=== PATIENT | female | born 1950 | race Caucasian/White ===

== ENCOUNTER 2021-03-02 14:38 | Outpatient (CLI) | payer MEDICARE, BC, SELFPAY | END 2021-03-02 14:39 | disposition home or self-care (01) | LOC: ANHAUDIO 14:40 | PROVIDERS: PCP Internal Medicine; Visit Provider Nurse Practitioner Family | DX: H90.3 Sensorineural hearing loss, bilateral (principal) | CPT/HCPCS: 92557; 92567 ==

== ENCOUNTER 2022-06-16 15:19 | Emergency (ER) | payer MEDICARE, BC, SELFPAY ==
[2022-06-16 15:46] VITALS: BP 143/83; PULSE 88; RESP 16; TEMP 36.1; O2SAT 99
--- NOTE | 2022-06-16 16:13 | ED.FEMALEGU ---
HPI - Female Genitourinary General Chief complaint: Urogenital-Female Stated complaint: uti Time Seen by Provider: 06/16/22 16:14 Source: patient, RN notes reviewed and old records reviewed Mode of arrival: ambulatory Limitations: no limitations History of Present Illness HPI Narrative: 71-year-old female presents to the [facility] with complaints of bloody urination since 11/16 this morning. Currently undergoing breast cancer treatment. Patient reports last she was seen and at [facility] and had fluids offer her lungs. Currently denies any chest pain. Patient states she is having some abdominal cramping, states she took a laxative just prior to arrival because of constipation Reports frequency, hematuria and urgency with urination since 629 Related Data Home Medications Medication Instructions Recorded Confirmed cetirizine 10 mg tablet 10 mg PO DAILY 06/16/22 06/16/22 evolocumab 140 mg/mL subcutaneous 140 mg subcut [id number] 06/16/22 06/16/22 pen injector (Repatha SureClick) metformin 500 mg tablet 500 mg PO DAILY 06/16/22 06/16/22 Allergies Allergy/AdvReac Type Severity Reaction Status Date / Time [id number] Reductase Allergy Intermediate Hives Verified 06/16/22 16:17 Inhibitor promethazine Allergy Unknown Other Verified 06/16/22 15:31 Review of Systems Review of Systems: All systems reviewed & are unremarkable except as noted in HPI and below Constitutional: Constitutional: Reports no additional constitutional complaints Eyes: Eyes: Reports no additional eye complaints ENT: Reports system reviewed and no additional complaints, except as documented Cardiovascular: Cardiovascular: Reports no additional cardiovascular complaints, Denies chest pain and Denies dyspnea Respiratory: Respiratory: Reports no additional respiratory complaints, Denies chest congestion, Denies cough and Denies dyspnea Gastrointestinal: Gastrointestinal: Reports as per HPI, Denies abdominal pain, Denies nausea and Denies vomiting Genitourinary: Genitourinary: Reports as per HPI and Reports dysuria Musculoskeletal: Musculoskeletal: Reports no additional musculoskeletal complaints Integumentary/Breasts: Skin/Breast: Reports system reviewed and no additional complaints, except as docu Neurologic: Reports system reviewed and no additional complaints, except as documented Psychiatric: Psychiatric: Reports no additional psychiatric complaints Allergic/Immunologic: Allergic/Immunologic: Reports no additional allergic/immunologic complaints [facility] Family History Family History Other Family history of cardiovascular disease Social History Social History Smoking status: Former smoker Alcohol intake: current Comments At the time of my signature, I reviewed and agree with the nursing past medical, surgical, social, and family history. There is no relevant family history pertinent to the patient complaint. Exam Const: General: cooperative, healthy appearing, comfortable, no acute distress, well developed, alert and well nourished Nutritional Appearance: well nourished Orientation/consciousness: patient oriented x3 Limitations: no limitations HENMT: Head: normal to inspection Ears: hearing grossly normal bilaterally and external ears normal Face/Nose/Sinus: Normal external nose present, Normal nares present, Normal nasal mucous membranes and turbinates present and normal facial exam Face and sinus: normal facial exam Mouth: Yes Normal oral and palatal mucosa present, Yes lip normal and Yes moist mucous membranes Eyes: General: appearance normal, both eyes and all related structures Alignment and Position: alignment normal Periorbital: periorbital findings normal Conjunctivae: conjunctivae normal Pupils: Equal, round and reactive pupils present EOM: EOMs intact bilaterally Neck: Neck: normal visua
== END 2022-06-16 16:36 | disposition home or self-care (01) ==
PROVIDERS: Emergency Provider Nurse Practitioner; PCP Internal Medicine
DX: R31.9 Hematuria, unspecified (principal); E11.9 Type 2 diabetes mellitus without complications; C50.919 Malignant neoplasm of unspecified site of unspecified female breast; Z87.891 Personal history of nicotine dependence
CPT/HCPCS: 81003; 87086; 99213; G0463

== ENCOUNTER 2023-01-29 15:41 | Emergency (ER) | payer MEDICARE, BC, SELFPAY ==
[2023-01-29 15:53] VITALS: BP 125/75; PULSE 92; RESP 18; TEMP 36.3; O2SAT 95
--- NOTE | 2023-01-29 20:22 | ED.WOUNDLAC ---
HPI - Wound/Laceration General Chief Complaint: Wound/Laceration Stated Complaint: lip laceration Time Seen by Provider: 01/29/23 17:59 Source: patient Mode of arrival: ambulatory Limitations: no limitations History of Present Illness HPI narrative: Patient is a 72-year-old female who presents to the ED with report of a laceration to her lower lip. Patient reports she was prepping for a colonoscopy tomorrow and was rushing to the bathroom today when she tripped over the bathroom rug and fell hitting her mouth and chin against the bathtub. She did not hit her head otherwise. She denied LOC. She sustained a laceration to her lower lip, but denies any other injury. Denies chipped teeth, malocclusion, jaw pain, difficulty opening jaw, headache, dizziness, lightheadedness, vision changes, neck or back pain. Patient's tetanus status up-to-date. Patient takes an aspirin 81 mg daily, no other blood thinners. Related Data Home Medications Medication Instructions Recorded Confirmed cetirizine 10 mg tablet 10 mg PO DAILY 06/16/22 06/16/22 evolocumab 140 mg/mL subcutaneous 140 mg subcut [id number] 06/16/22 06/16/22 pen injector (Repatha SureClick) metformin 500 mg tablet 500 mg PO DAILY 06/16/22 06/16/22 Allergies Allergy/AdvReac Type Severity Reaction Status Date / Time [id number] Reductase Allergy Intermediate Hives Verified 01/29/23 17:44 Inhibitor promethazine Allergy Unknown Other Verified 01/29/23 17:44 Review of Systems Review of Systems: CONSTITUTIONAL: Denies fever, chills, or sweats. ENT: See HPI. CARDIOVASCULAR: Denies chest pain. RESPIRATORY: Denies dyspnea. GASTROINTESTINAL: Denies abdominal pain, nausea, vomiting, or diarrhea. GENITOURINARY: Denies dysuria or hematuria. SKIN: See HPI. MUSCULOSKELETAL: Denies back pain, joint pain, or myalgia. NEUROLOGIC: HPI. All systems reviewed & are unremarkable except as noted in HPI and below PMFSH Family History Family History Other Family history of cardiovascular disease Social History Social History Smoking status: Former smoker Alcohol intake: current Exam Narrative: GENERAL: Elderly, non-toxic, in no acute distress. HEAD: Normocephalic, atraumatic. EENT: PERRLA/EOMI, conjunctiva clear bilaterally. Nose normal. No epistaxis. No septal hematoma. Diffuse swelling and bruising noted to chin/lower jaw with tenderness over chin. No chipped teeth. No malocclusion. No trismus. Laceration of lower lip approximately 3 cm starting in the middle of chin and extending just slightly past vermilion border of lower lip. No active bleeding. No through and through laceration, though contusion and ecchymosis noted to inner lower lip. NECK: Supple. No adenopathy, no masses. No midline spinal tenderness. RESPIRATORY: Airway patent, respirations nonlabored. Clear to auscultation bilaterally, no rales, rhonchi, wheezing. CARDIOVASCULAR: Regular rate and rhythm without murmurs, rubs, or gallops. Radial pulses 2+ and equal bilaterally. MUSCULOSKELETAL: Moves all extremities. Strength/ROM intact without gross deformities. SKIN: Warm, dry, normal color. No rashes. NEURO: A&O X3. Speech clear. Cranial nerves II-XII grossly intact. Steady gait. No ataxic movements. PSYCHIATRIC: Appropriate mood and affect. Normal interaction. Course Vital Signs Vital signs: Vital Signs Temperature 97.4 F L 01/29/23 15:53 Pulse Rate 92 01/29/23 15:53 Respiratory Rate 18 01/29/23 15:53 Blood Pressure 125/75 01/29/23 15:53 Pulse Oximetry 95 01/29/23 15:53 Temperature 97.4 F L 01/29/23 15:53 Pulse Rate 84 01/29/23 20:42 Respiratory Rate 18 01/29/23 20:42 Blood Pressure 122/71 01/29/23 20:42 Pulse Oximetry 99 01/29/23 20:42 Procedures Laceration Laceration 1: Date: 01/29/23 Time: 20:20 Sit
[2023-01-29] MEDS: LIDOCAINE HCL 1% LOCAL INJ 10 ML VIAL 5 ML INFILTRATE (20:28)
[2023-01-29] MEDS: AMOXICILLIN/CLAVULANATE K 875-125 MG TAB 1 TABLET PO (20:36)
[2023-01-29 20:42] VITALS: BP 122/71; PULSE 84; RESP 18; O2SAT 99
== END 2023-01-29 20:48 | disposition home or self-care (01) ==
PROVIDERS: Emergency Provider Physician Assistant; PCP Internal Medicine
DX: S01.511A Laceration without foreign body of lip, initial encounter (principal); W18.09XA Striking against other object with subsequent fall, initial encounter; Z87.891 Personal history of nicotine dependence
CPT/HCPCS: 12013; 99283; A9270